=== PATIENT | female | born 1980 | race Caucasian/White ===

== ENCOUNTER 2023-04-22 12:46 | Outpatient (CLI) | payer BC, SELFPAY ==
--- NOTE | 2023-04-22 13:00 | CRLHL7_ITS ---
For Patients: As a result of the Century Cures Act, medical imaging exams and procedure reports are released immediately into your electronic medical record. You may view this report before your referring provider. If you have questions, please contact your health care provider. CLINICAL HISTORY: pelvic and perineal pain TECHNIQUE: 2D hunter scale ultrasound. In addition color Doppler and spectral Doppler analysis was performed of the pelvis using a transvaginal approach. FINDINGS: On transvaginal imaging, the myometrium has a heterogeneous echotexture. The uterus measures 10.6 x 4.8 x 6.8 cm. The endometrial lining measures 13 mm in thickness. The right ovary measures 3.4 x 2.0 x 2.6 cm in size and the left ovary measures 2.7 x 1.4 x 1.2 cm. The ovaries demonstrate normal arterial and venous blood flow on color Doppler and spectral Doppler analysis. Simple cyst right ovary measuring 1.9 x 1.8 x 1.7 cm. There are no suspicious fluid collections within the cul-de-sac. IMPRESSION: No ovarian torsion or adnexal mass. No excess pelvic free fluid. No uterine fibroid. Incidental simple right ovarian cyst measuring 1.9 cm. Endometrial thickness 13 millimeters. Dictated by Ramone Shelley MD @ 04/23/2023 10:30:57 AM (Electronically Signed)
== END 2023-04-22 12:47 | disposition home or self-care (01) ==
LOC: US 12:47
PROVIDERS: Visit Provider Physician Assistant
DX: R10.2 Pelvic and perineal pain (principal); N83.201 Unspecified ovarian cyst, right side; R93.89 Abnormal findings on diagnostic imaging of other specified body structures
CPT/HCPCS: 76830; 76856; 93976